=== PATIENT | female | born 1980 | race Caucasian/White ===

== ENCOUNTER 2016-06-07 10:30 | Inpatient (IN) | payer MEDICAID ==
[~2016-06-07] VITALS: Ht 157.5 cm; Wt 92.1 kg
--- NOTE | ~2016-06-07 | HP ---
ADMIT: 06/07/2016 RM/LOC: 224 [facility] MR#: [id number] [address] [address] ARACELI LARSONDAMIANJOANIE GUZMAN [address] [place] [address] Pre-OP History and Physical SEX: F AGE: 35 : 1980 Corrected: 06/07/2016 1243 djs DATE OF SERVICE: PRINCIPAL DIAGNOSES: 1. Term intrauterine . 2. History of previous section x1. HISTORY OF PRESENT ILLNESS: The patient is a 35-year-old female, 4, para 2-0-1-2, who presents at 39 weeks' estimated gestational age for elective repeat low transverse section. The patient is a recent transfer of care from [place] and had had full evaluation done there. She had had possible exposure to Zika virus in [place]. Zika virus testing had been negative however, and multiple ultrasounds during the had revealed no abnormalities. MEDICATIONS: The patient takes a vitamin. PREVIOUS MEDICAL HISTORY: She denies any significant previous medical history. FAMILY HISTORY: Significant for hypertension and breast cancer. PHYSICAL EXAMINATION: GENERAL: The patient is a well-developed, well- nourished female, alert and oriented, in no apparent distress with normal stream of thought and content of speech. HEART: Regular rate and rhythm without murmurs, rubs, or gallops. LUNGS: Clear to auscultation bilaterally. ABDOMEN: Soft with positive bowel sounds. Gravid. ASSESSMENT: Term intrauterine with history of previous section x1. We reviewed management options with the patient. The patient would be interested in a . We discussed that was not offered at our hospital. She states she has no transportation available to travel to hospital ADMIT: 06/07/2016 RM/LOC: 224 [facility] MR#: [id number] [address] [id number] CHARLES JIRIKA UTE MEGAN [address] [place] [address] Pre-OP History and Physical SEX: F AGE: 35 : 1980 which does offer a trial of labor after , and as such, she desires to proceed with repeat low transverse section. We discussed risks involved with surgery including risks of infection, risk of bleeding with possible need for blood transfusion, and the attendant infectious risks inherent in blood transfusion. We also discussed risk of damage to other organs including, but not limited to, bowel, bladder, major blood vessels, and ureters with possible need for additional surgery and repair should such damage occur. The patient voiced understanding of the risks, benefits, and alternatives to the proposed procedure and desires to proceed with repeat low transverse section. Ousmane Hall MD/ eusebio JOB #: [id number] CC: Ousmane Hall, Attending Physician FAMILY PHYSICIAN, Family Physician Corrected: 06/07/2016 1243 michelle
[2016-06-09] MEDS ORDERED: COLACE-DPS100 MG PO (20:39)
[2016-06-09] MEDS ORDERED: MOTRIN-DPS800 MG PO (20:39)
[2016-06-09] MEDS ORDERED: PRENATAL VIT1 TAB PO (20:39)
[2016-06-09] MEDS ORDERED: NIPPLECREAM TP (20:40)
[2016-06-09] MEDS ORDERED: PERCOCET 5 DPS1 TAB PO (20:40)
--- NOTE | 2016-07-10 08:40 | OR ---
ADMIT: 06/07/2016 RM/LOC: 224 [facility] MR#: [id number] [facility] [address] [place] [id number] ARACELI NIÑOSTEPHONUTE Baldwin [address] [place] [address] Operative/Delivery Room Report SEX: F AGE: 35 : 1980 SURGERY DATE: 06/07/2016 SURGEON: Ousmane Hall MD PRINCIPAL DIAGNOSES: 1. Term intrauterine . 2. History of previous section. POSTOPERATIVE DIAGNOSES: 1. Term intrauterine . 2. History of previous section. PROCEDURE: Repeat low transverse section. ASSISTANTS: 1. Jessica Powell MD. 2. Kinjal Guillaume MD Resident. INDICATION: The patient is a 35-year-old female, 4, para 2-0- 1-2, who presented at 39 weeks' estimated gestational age for elective repeat low transverse section. ANESTHESIA: Spinal. ESTIMATED BLOOD LOSS: 600 mL. COMPLICATIONS: None. FINDINGS: Viable female , 6 pounds 2.5 ounces with scores of 8 at 1 and 9 at 5 minutes, delivered with a nuchal cord x2. DESCRIPTION OF PROCEDURE: When the patient was noted to be under adequate anesthesia, she was prepped and draped in the usual fashion in dorsal supine position with a leftward tilt. A transverse skin incision was made with a scalpel and carried through sharply to the underlying layer of fascia. Fascia was nicked in the midline and the fascial incision was extended laterally with Campo scissors. Fascia was dissected off the underlying rectus muscles. The rectus muscles were in the midline. The parietal peritoneum was identified, tented up with Camila clamps, and entered sharply with Campo scissors. This incision was then extended superiorly and inferiorly with good visualization of the bladder. Bladder blade was then inserted, and a bladder flap was created with a combination of sharp and blunt dissection. The uterus was then incised in the midline, and the uterine incision was extended laterally with digital dissection. Infant's head was then delivered atraumatically. Mouth and nose were cleared. Neck was examined for nuchal cord. Nuchal cord x2 was noted and was reduced without difficulty. The remainder of the was then delivered. Cord was clamped x2, cut, and the infant was handed off to the awaiting nursing staff. Placenta was then delivered intact with normal appearance. The uterus was exteriorized and ADMIT: 06/07/2016 RM/LOC: 224 [facility] MR#: [id number] [address] [address] UTE TAVERAS [address] [place] [address] Operative/Delivery Room Report SEX: F AGE: 35 : 1980 cleared of all clots and debris. The endometrial cavity was then swept with a moist laparotomy sponge to remove any remaining products of conception. The uterine incision was then reapproximated with a running locked length of 0 Vicryl. Two [id number] stitches were then used to obtain good hemostasis. The patient's abdomen was then suctioned. The uterus was returned to the patient's abdomen. The paracolic gutters were cleared of all clots and debris. Uterine incision was again inspected and noted to be hemostatic. The subfascial compartments were then inspected and noted to be hemostatic, and the fascia was reapproximated with a running length of 0 Vicryl. Subcutaneous tissue was then inspected and noted to be hemostatic and was reapproximated with several interrupted sutures of 3-0 plain gut, and the skin was closed with Insorb subcuticular annie. The patient tolerated the procedure well and was taken to the recovery room in stable condition. All sponge, instrument, and needle counts were correct. Ousmane Hall MD/ eusebio JOB #: [id number] CC: Ousmane Hall, Attending Physician FAMILY PHYSICIAN, Family Physician
--- NOTE | 2016-08-20 09:38 | DS ---
ADMIT: 06/07/2016 RM/LOC: 224 [facility] MR#: [id number] 2620 [facility] [address] [place] [id number] UTE TAVERAS [address] [place] [address] General Discharge Summary SEX: F AGE: 35 : 1980 ADMISSION DATE: 06/07/2016 DISCHARGE DATE: 06/09/2016 PRINCIPAL DIAGNOSIS: 1. Term intrauterine . 2. History of previous section. REASON FOR HOSPITALIZATION: The patient is a 35-year-old, female, 4, para 2, who presented at 39 weeks' estimated gestational age for elective repeat low transverse section OPERATIVE PROCEDURE: The patient underwent a repeat low transverse section on 06/07/2016. HOSPITAL COURSE: The patient was admitted, underwent an uncomplicated repeat low transverse section. She did well through the initial operative day. By the morning of postoperative day #1, she was doing well, tolerating a regular diet, experiencing good pain control with oral pain medications, ambulating without difficulty, and using the bathroom without any problems. We continued to monitor her through the course of postoperative day #1. By the morning of postoperative day #2, she was tolerating regular diet, experiencing good pain control with oral pain medications, ambulating without difficulty, using the bathroom without any problems, and breast feeding without any difficulties. She remained afebrile with stable vital signs through the course of her postoperative care. She was dismissed to home on postoperative day #2 on the following medications: 1. Motrin 800 mg 1 tab p.o. q.8 hours p.r.n. 2. Percocet 5 one to two tabs p.o. q.4 to 6 hours p.r.n. She was instructed to follow up in the clinic in 2 weeks' time for an incision check and again in 6 weeks' time, sooner as needed for any problems. Ousmane Hall MD/ eusebio JOB #: [id number] CC: Ousmane Hall MD, Attending Physician FAMILY PHYSICIAN, Family Physician
== END 2016-06-09 12:20 | disposition home or self-care (01) | DRG 766 ==
LOC: 2LDRP 10:30 → BC 10:30 → 2LDRP 10:55
PROVIDERS: ADMIT Obstetrics & Gynecology
PROC: 10D00Z1 Extraction of Products of Conception, Low, Open Approach (ICD-10-PCS; principal; 2016-06-07)
DX: O34.211 Maternal care for low transverse scar from previous cesarean delivery (principal); O69.81X0 Labor and delivery complicated by cord around neck, without compression, not applicable or unspecified; Z20.828 Contact with and (suspected) exposure to other viral communicable diseases; Z3A.39 39 weeks gestation of pregnancy; Z37.0 Single live birth